=== PATIENT | male | born 1980 | race American Indian/Alaskan Native ===

== ENCOUNTER 2017-08-30 13:50 | Outpatient (CLI) | payer MEDICAID | END 2017-08-30 13:51 | disposition home or self-care (01) | LOC: ECHO 13:50 | PROVIDERS: ATTEND Nurse Practitioner | DX: I37.1 Nonrheumatic pulmonary valve insufficiency (principal); R93.1 Abnormal findings on diagnostic imaging of heart and coronary circulation; J44.9 Chronic obstructive pulmonary disease, unspecified | CPT/HCPCS: 93306 ==

== ENCOUNTER 2017-10-12 18:05 | Emergency (ER) | payer OTHER ==
[2017-10-12 18:17] VITALS: BP 118/66
[2017-10-12] MEDS ORDERED: MOTRIN PO ONE (20:28)
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
--- NOTE | 2017-10-12 21:51 | XRay Report ---
FINAL REPORT PROCEDURE: XR RIBS UNI W PA CHEST 3+V RT TECHNIQUE: RIGHT rib radiographs, 3 views of the ribs, including PA chest. HISTORY: right pain at rib COMPARISON: No prior studies are available for comparison. FINDINGS: Heart: Normal. Mediastinum/Vessels: Normal. Lungs: Normal. Pleural space: Normal. Pneumothorax: None. Bony thorax/ribs: No significant abnormality. IMPRESSION: Normal Examination.
--- NOTE | 2017-10-12 21:52 | XRay Report ---
FINAL REPORT PROCEDURE: XR SHOULDER 2+V RT TECHNIQUE: Right shoulder radiographs including AP views in internal and external rotation and abduction. CPT 27548 HISTORY: shoulder pain right COMPARISON: No prior studies are available for comparison. FINDINGS: Fracture (s) and/or Dislocation(s): None . Joint space(s): Normal . Soft tissues: Normal . Bone mineralization: Normal . Foreign bodies: None . IMPRESSION: Normal Examination
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
== END 2017-10-12 22:43 | disposition home or self-care (01) ==
LOC: ED 18:05
DX: S13.4XXA Sprain of ligaments of cervical spine, initial encounter (principal); S46.911A Strain of unspecified muscle, fascia and tendon at shoulder and upper arm level, right arm, initial encounter; S20.211A Contusion of right front wall of thorax, initial encounter; E11.9 Type 2 diabetes mellitus without complications; J44.9 Chronic obstructive pulmonary disease, unspecified; Z95.818 Presence of other cardiac implants and grafts; V89.2XXA Person injured in unspecified motor-vehicle accident, traffic, initial encounter; Y93.89 Activity, other specified; Y99.8 Other external cause status; Y92.410 Unspecified street and highway as the place of occurrence of the external cause
CPT/HCPCS: 70450; 72125

== ENCOUNTER 2018-06-27 10:07 | Outpatient (CLI) | payer MEDICAID | END 2018-06-27 10:08 | disposition home or self-care (01) | LOC: LAB 10:07 | PROVIDERS: ATTEND Internal Medicine | DX: E11.40 Type 2 diabetes mellitus with diabetic neuropathy, unspecified (principal); E78.5 Hyperlipidemia, unspecified; D64.9 Anemia, unspecified; J44.9 Chronic obstructive pulmonary disease, unspecified | CPT/HCPCS: 36415; 83036 ==

== ENCOUNTER 2018-09-19 09:31 | Outpatient (CLI) | payer MEDICAID, OTHER ==
[2018-09-19 10:22] LABS: Hematocrit 42.7 % (35.5-45.6); Hemoglobin 14.7 gm/dl (11.8-15.2); Mean Corpuscular HGB Conc 34 % (32-34); Mean Corpuscular Volume 97 fl (84-94); Red Blood Count 4.41 M/mm3 (3.65-5.03); Red Cell Distribution Width 13.5 % (13.2-15.2)
[2018-09-19 10:50] LABS: Alanine Aminotransferase 17 units/L (7-56); Albumin 4.1 g/dL (3.9-5); BUN/Creatinine Ratio 11; Blood Urea Nitrogen 11 mg/dL (9-20); Calcium 9.2 mg/dL (8.4-10.2); Chol/HDL Ratio 3.27 %; HDL Cholesterol 48 mg/dL (40-59); Hemolysis Index 10; LDL Cholesterol,Direct 111 mg/dL (50-130)
[2018-09-19 11:17] LABS: Platelet Count 182 K/mm3 (140-440)
[2018-09-22 15:14] LABS: Vitamin D, 25-OH, D2 <4 ng/mL
== END 2018-09-19 09:32 | disposition home or self-care (01) ==
LOC: LAB 09:31
PROVIDERS: ATTEND Internal Medicine
DX: E10.40 Type 1 diabetes mellitus with diabetic neuropathy, unspecified (principal); E78.5 Hyperlipidemia, unspecified; E55.9 Vitamin D deficiency, unspecified; J44.9 Chronic obstructive pulmonary disease, unspecified
CPT/HCPCS: 36415; 80053; 80061; 82306; 82607; 83036; 84443; 85027

== ENCOUNTER 2019-02-13 09:36 | Outpatient (CLI) | payer MEDICAID ==
[2019-02-13 11:16] LABS: Chol/HDL Ratio 3.3 %
== END 2019-02-13 09:37 | disposition home or self-care (01) ==
LOC: LAB 09:36
PROVIDERS: ATTEND Internal Medicine
DX: E78.5 Hyperlipidemia, unspecified (principal); E11.40 Type 2 diabetes mellitus with diabetic neuropathy, unspecified; J44.9 Chronic obstructive pulmonary disease, unspecified
CPT/HCPCS: 36415; 80061; 83036

== ENCOUNTER 2020-04-01 12:11 | Outpatient (CLI) | payer MEDICAID ==
--- NOTE | 2020-04-01 14:28 | XRay Report ---
RIGHT HIP 2 VIEWS INDICATION: RIGHT HIP PAIN. COMPARISON: None. IMPRESSION: No acute osseous or soft tissue abnormality. No significant DJD. Signer Name: Ulices Hodges Jr, MD Signed: 04/01/2020 2:23 PM Workstation Name: [id number]
== END 2020-04-01 12:12 | disposition home or self-care (01) ==
LOC: XRAY 12:11
PROVIDERS: ATTEND Internal Medicine
DX: M79.604 Pain in right leg (principal)

== ENCOUNTER 2021-03-22 09:37 | Outpatient (CLI) | payer MEDICAID ==
--- NOTE | 2021-03-22 11:45 | Magnetic Resonance Report ---
MRI lumbar spine without contrast INDICATION: Back pain TECHNIQUE: Axial and sagittal images FINDINGS: Alignment appears normal. Hemangiomas seen at L2. No marrow replacement process. L1-L2: Disc desiccation. There is broad-based posterior disc bulge with bilateral lateral components right greater than left. There is some mild right lateral recess narrowing and right neuroforaminal n arrowing. No severe canal narrowing. L2-L3: Broad-based posterior disc bulge slightly asymmetric to the right. No severe neuroforaminal na rrowing or canal narrowing. L3-L4: Facet hypertrophy with posterior disc bulge. No significant neuroforaminal narrowing. L4-L5: Facet change with posterior disc bulge. Mild left lateral recess narrowing. No severe neurofor aminal narrowing. L5-S1: No spinal canal narrowing or neuroforaminal narrowing. IMPRESSION: Discogenic degenerative change most significant at L1-L2. Please see above level by level description . Signer Name: Jimmie Srinivasan MD Signed: 03/22/2021 11:41 AM Workstation Name: [id number]
== END 2021-03-22 09:38 | disposition home or self-care (01) ==
LOC: MRI 09:37
PROVIDERS: ATTEND Orthopaedic Surgery
DX: M51.36 Other intervertebral disc degeneration, lumbar region (principal); M54.41 Lumbago with sciatica, right side; M47.817 Spondylosis without myelopathy or radiculopathy, lumbosacral region
CPT/HCPCS: 72148